=== PATIENT | female | born 1980 | race African-American/Black ===

== ENCOUNTER 2016-12-25 09:25 | Emergency (ER) | payer MEDICAID ==
[~2016-12-25] VITALS: Ht 160 cm; Wt 81.6 kg
[~2016-12-25 09:25] MED LIST: IBUPROFEN600 MG ORAL; IBUPROFEN800 MG ORAL; NKM; PEPCID20 MG PO; SALINE NASAL SP45 ML NS; TAMIFLU75 MG ORAL; TESSALON PERLE100 M2 ORAL
[2016-12-25 09:40] VITALS: BP 113/75
[2016-12-25] MEDS ORDERED: AZITHROMYCIN250 MG ORAL (10:32)
[2016-12-25] MEDS ORDERED: PYRIDOXINE HCL25 MG PO (10:32)
[2016-12-25 10:48] VITALS: BP 120/70
--- NOTE | 2016-12-29 13:51 | Emergency Room Report ---
History of Present Illness General Chief Complaint: General Complaint Source: Patient Present Illness HPI 36-year-old female presents to ED for evaluation. Patient states the last 2 days she has had a cough. productive. Blood-tinged sputum. Patient notes bodyaches and chills. Patient states she is 5 weeks . Denies any abdominal pain. Denies any sore throat or earache. Denies any dysuria or hematuria. No other aggravating relieving factors. Denies any other associated symptoms Allergies: Coded Allergies: METOCLOPRAMIDE (Verified Allergy, Unknown, 10/18/14) PROMETHAZINE (Verified Allergy, Unknown, 10/18/14) Patient History Past Medical History: none Past Surgical History: none Pertinent Family History: none Social History: Denies: alcohol use, drug use, smoking Last Menstrual Period: 11/18/2016 Now: Yes : 6 Para: 3 Immunizations: UTD Reviewed Nursing Documentation: PMH: Agreed, PSxH: Agreed Nursing Documentation-PMH Past Medical History: No Stated History Hx Cardiac Problems: No Hx Hypertension: No Hx Pacemaker: No Hx Asthma: No Hx COPD: No Hx Diabetes: No Hx Cancer: No Hx Gastrointestinal Problems: Yes - GERD Hx Dialysis: No Hx Cerebrovascular Accident: No Hx Seizures: No Review of Systems All Other Systems: negative except mentioned in HPI Physical Exam Vital Signs Date Time Temp Pulse Resp B/P Pulse Ox O2 Delivery O2 Flow Rate FiO2 12/25/16 09:40 99.1 86 16 113/75 98 Room Air Sp02 EP Interpretation: reviewed, normal General Appearance: no apparent distress, alert, GCS 15, non-toxic Head: normocephalic, atraumatic Eyes: bilateral eye PERRL, bilateral eye normal inspection ENT: hearing grossly normal, normal pharynx, no angioedema, normal voice Neck: full range of motion, supple/symm/no masses Respiratory: chest non-tender, lungs clear, normal breath sounds, speaking full sentences Cardiovascular #1: regular rate, rhythm, no edema Cardiovascular #2: 2+ carotid (R), 2+ carotid (L), 2+ radial (R), 2+ radial (L) , 2+ dorsalis pedis (R), 2+ dorsalis pedis (L) Gastrointestinal: normal bowel sounds, non tender, soft, non-distended, no guarding, no rebound Rectal: deferred Genitourinary: normal inspection, no CVA tenderness Musculoskeletal: back normal, gait/station normal, normal range of motion, non- tender Neurologic: alert, oriented x3, responsive, motor strength/tone normal, sensory intact, speech normal Psychiatric: judgement/insight normal, memory normal, mood/affect normal, no suicidal/homicidal ideation Reflexes: 3+ bicep (R), 3+ bicep (L), 3+ tricep (R), 3+ tricep (L), 3+ knee (R) , 3+ knee (L) Skin: normal color, no rash, warm/dry, well hydrated Lymphatic: no adenopathy Medical Decision Making Diagnostic Impression: Primary Impression: Atypical pneumonia ER Course Hospital Course 36-year-old female presents ED complaining of cough and chills. 5 weeks Differential diagnoses include: URI, pharyngitis, otitis media, asthma Clinical course Patient placed on stretcher. After initial history, physical exam reveals a female in no acute distress. Bilateral TM unremarkable. No pharyngeal erythema. No tonsillar exudates. No lymphadenopathy. lungs clear. abdomen soft. Clinical findings consistent with atypical pneumonia. We will discharge with Z- Kayden which is safe in Diagnosis - atypical pneumonia Stable and discharged home with Rx Zpack. Instructed to followup with PMD. Return to ED if symptoms recur or worsen Last Vital Signs Date Time Temp Pulse Resp B/P Pulse Ox O2 Delivery O2 Flow Rate FiO2 12/25/16 10:48 78 16 120/70 98 Room Air 12/25/16 09:40 99.1 Status: improved Disposition: HOME, SELF-CARE Condition: Stable Scripts Azithromycin* (ZITHROMAX*) 250 Mg Tablet 250 MG ORAL DAILY, #6 TAB 0 Refills Take two tablets by mouth today, then take one tablet by mouth daily for four days Prov: BAILEY WILEY M.D. 12/25/16 Pyridoxine Hcl (PYRIDOXINE HCL) 25 Mg Tablet 25 MG PO Q8HR for Nausea & Vomiting, #30 TAB Prov: BAILEY WILEY M.D. 12/25/16 Patient Instructions: Community-Acquired Pneumonia, Adult, [id number] BAILEY WILEY M.D. Dec 29, 2016 13:51
== END 2016-12-25 10:50 | disposition home or self-care (01) ==
LOC: EMR 09:59
DX: O99.511 Diseases of the respiratory system complicating pregnancy, first trimester (principal); J18.9 Pneumonia, unspecified organism; K21.9 Gastro-esophageal reflux disease without esophagitis; Z88.8 Allergy status to other drugs, medicaments and biological substances; Z3A.01 Less than 8 weeks gestation of pregnancy
CPT/HCPCS: 99284

== ENCOUNTER 2018-06-19 08:15 | Emergency (ER) | payer MEDICAID ==
[~2018-06-19] VITALS: Ht 162.6 cm; Wt 77.1 kg
[~2018-06-19 08:15] MED LIST changes: +AZITHROMYCIN250 MG ORAL; +PYRIDOXINE HCL25 MG PO
--- NOTE | 2018-06-19 08:35 | Emergency Room Report ---
History of Present Illness General Chief Complaint: Upper Respiratory Illness Source: Patient, Medical Record Present Illness HPI Patient is a 37-year-old female who presented after increased cough and congestion. Patient had onset of symptoms approximate 3 days prior to arrival. Patient reports having nonproductive cough. She denies any prior history of asthma. Patient states that she smokes marijuana regularly. She reports a mild sore throat. She denies any vomiting or diarrhea. Allergies: Coded Allergies: CLINDAMYCIN (Verified Allergy, Unknown, 06/19/18) METOCLOPRAMIDE (Verified Allergy, Unknown, 10/18/14) PROMETHAZINE (Verified Allergy, Unknown, 10/18/14) Patient History Past Medical History: see triage record Last Menstrual Period: 06/13/18 Reviewed Nursing Documentation: PMH: Agreed; PSxH: Agreed Nursing Documentation-PMH Past Medical History: No History, Except For Hx Cardiac Problems: No Hx Hypertension: No Hx Pacemaker: No Hx Asthma: No Hx COPD: No Hx Diabetes: No Hx Cancer: No Hx Gastrointestinal Problems: Yes - GERD Hx Dialysis: No Hx Cerebrovascular Accident: No Hx Seizures: No Review of Systems All Other Systems: negative except mentioned in HPI Physical Exam Vital Signs Date Time Temp Pulse Resp B/P (MAP) Pulse Ox O2 Delivery O2 Flow Rate FiO2 06/19/18 08:18 99.3 78 18 105/70 96 Room Air 99.3 General Appearance: well appearing, no apparent distress, alert, GCS 15, non- toxic Head: normocephalic, atraumatic ENT: hearing grossly normal, normal voice Neck: full range of motion, supple Respiratory: no respiratory distress, speaking full sentences, wheezing Cardiovascular #1: normal inspection, normal peripheral pulses, regular rate, rhythm, no edema Gastrointestinal: normal inspection, non tender, soft Musculoskeletal: normal inspection, no calf tenderness Neurologic: normal inspection, alert, oriented x3, normal gait Psychiatric: mood/affect normal Skin: no rash Medical Decision Making Diagnostic Impression: Primary Impression: Bronchitis ER Course patient presented for cough.Differential diagnosis included but was not limited to bronchitis, pneumonia, pulmonary embolism, pericarditis, asthma, foreign body.The chest x-ray was ordered due to patient's symptoms.Chest x-ray one view read by radiology showed no pleural effusions or infiltrates. No acute cardio pulmonary disease. Patient does not have any risk factors for pulmonary embolism. The patient shows no evidence of productive cough or severe shortness of breath.The patient given breathing treatments improvement in her symptoms. Patient shows no risk factors for pulmonary embolism. Patient was advised smoking cessation.The patient is advised to follow up with primary care doctor in 2 days. Patient is advised to return if any worsening condition or if any changes in status that are concerning. This report is dictated with [employer] straw hat washer operator software which may occasionally lead to discrepancies related to use of this software. Last Vital Signs Date Time Temp Pulse Resp B/P (MAP) Pulse Ox O2 Delivery O2 Flow Rate FiO2 06/19/18 08:18 99.3 78 18 105/70 96 Room Air 99.3 Status: improved Disposition: HOME, SELF-CARE Condition: Stable Scripts Prednisone* (PREDNISONE*) 20 Mg Tablet 60 MG ORAL DAILY, #15 TAB Prov: Augustin Real MD 06/19/18 Albuterol Sulfate* (ALBUTEROL SULFATE MDI*) 8.5 Gm Hfa.aer.ad 2 PUFF INH Q6H, #1 EA 0 Refills Prov: Augustin Real MD 06/19/18 Augustin Real MD Jun 19, 2018 08:35
[2018-06-19] MEDS ORDERED: Albuterol/Ipratropium 3ml neb HHN ONE (08:45)
[2018-06-19] MEDS ORDERED: ALBUTEROL SULF8.5 GM INH (09:42)
[2018-06-19] MEDS ORDERED: PREDNISONE20 MG ORAL (09:42)
--- NOTE | 2018-06-19 09:43 | Diagnostic Imaging Report ---
INDICATION: Shortness of breath COMPARISON: Chest x-ray dated 10/18/14 FINDINGS: Single frontal view demonstrates a normal cardiomediastinal silhouette. The lungs are clear. No pleural effusions. The visualized osseous structures are within normal limits. IMPRESSION: No acute cardiopulmonary disease.
[2018-06-19 10:15] VITALS: BP 112/77
[2018-06-19 10:49] VITALS: BP 112/77
== END 2018-06-19 10:58 | disposition home or self-care (01) ==
LOC: EMR 08:30
DX: J40 Bronchitis, not specified as acute or chronic (principal)
CPT/HCPCS: 71045; 81025; 94640; 99284; J7512; J7620

== ENCOUNTER 2018-08-18 14:41 | Emergency (ER) | payer MEDICAID ==
[~2018-08-18] VITALS: Ht 162.6 cm; Wt 81.6 kg
[~2018-08-18 14:41] MED LIST changes: +ALBUTEROL SULF8.5 GM INH; +PREDNISONE20 MG ORAL
--- NOTE | 2018-08-18 15:14 | Emergency Room Report ---
History of Present Illness General Chief Complaint: Dizziness Source: Patient Present Illness HPI 37-year-old female patient presents ER complaining of intermittent dizziness for the past 5 days. Contrary triage report is not constant. Reports worse with change in position. Denies headache. Denies fever, chest pain, shortness of breath. Denies vision changes. Reports tinnitus heard yesterday. denies abdominal pain. Reports history of anxiety, states he is to takes Xanax, states she stopped taking medication "years ago" because she didn't want to "become addicted". Denies thoughts of hurting herself or others. Denies syncope. Denies ear pain. Denies vision changes. Reports "feels like im moving on a boat". Allergies: Coded Allergies: CLINDAMYCIN (Verified Allergy, Unknown, 06/19/18) METOCLOPRAMIDE (Verified Allergy, Unknown, 10/18/14) PROMETHAZINE (Verified Allergy, Unknown, 10/18/14) Patient History Past Medical History: see triage record Last Menstrual Period: 08/02/18 Reviewed Nursing Documentation: PMH: Agreed; PSxH: Agreed Nursing Documentation-PMH Past Medical History: No Stated History Hx Cardiac Problems: No Hx Hypertension: No Hx Pacemaker: No Hx Asthma: No Hx COPD: No Hx Diabetes: No Hx Cancer: No Hx Gastrointestinal Problems: Yes - GERD Hx Dialysis: No Hx Cerebrovascular Accident: No Hx Seizures: No Review of Systems All Other Systems: negative except mentioned in HPI Physical Exam Vital Signs Date Time Temp Pulse Resp B/P (MAP) Pulse Ox O2 Delivery O2 Flow Rate FiO2 08/18/18 14:47 98.2 79 18 106/67 98 Room Air Sp02 EP Interpretation: reviewed, normal General Appearance: well appearing, no apparent distress, alert, GCS 15, non- toxic Head: normocephalic, atraumatic Eyes: bilateral eye normal inspection, bilateral eye PERRL ENT: hearing grossly normal, normal pharynx, no angioedema, normal voice, TMs + canals normal, uvula midline, moist mucus membranes Neck: full range of motion, no bony tend Respiratory: lungs clear, normal breath sounds, no rhonchi, no respiratory distress, no accessory muscle use, no wheezing, speaking full sentences Cardiovascular #1: regular rate, rhythm, no edema Gastrointestinal: non tender, soft, no mass, non-distended, no guarding, no rebound Genitourinary: no CVA tenderness Musculoskeletal: back normal, digits/nails normal, gait/station normal, normal range of motion, non-tender Neurologic: alert, oriented x3, responsive, cotton wringer III-XII nml as tested, motor strength/tone normal, sensory intact, cerebellar normal, normal gait, speech normal Psychiatric: mood/affect normal Skin: no rash Lymphatic: no adenopathy Medical Decision Making PA Attestation Dr. Waller is my supervising Physician whom patient management has been discussed with. Diagnostic Impression: Primary Impression: Dizziness ER Course Pt. presents to the ED c/o dizziness. Ddx considered but are not limited to orthostatic dizziness, Mnire's, BPPV, anemia,anxiety. cranial nerves intact as tested, no focal neuro deficits, low suspicion for central vertigo, does not require CT head at this time. Patient ambulatory independently in the ER without difficulty. Vital signs: are WNL, pt. is afebrile ER COURSE: Provided with meclizine. no improvement in symptoms with Mitch-Hallpike maneuver. orthostatic vital show 15 bpm increasing heart rate from sitting to standing, possible orthostatic dizziness, patient with fluids. CBC and CMP unremarkable, no signs of anemia or electrolyte abnormality. UA negative, no signs of infection Urine negative results discussed with patient. patient reports symptoms improved while in ER. advised patient to follow-up with primary care provider discuss further evaluation and management of dizziness symptoms. Discuss referral to neuro specialist as needed. ER precautions given. follow up with mental health professional to discuss anxiety symptoms. DISCHARGE: Rx provided for Meclizine At this time pt is stable for d/c to home. Patient is resting comfortably, in no acute distress, nontoxic appearing, talking without difficulty. Patient to take medications as instructed Will provide with patient care instructions and any necessary prescriptions. Care plan and follow-up instructions provided. Patient instructed to follow-up with primary care provider in 3 - 5 days. Patient questions asked and answered. Patient reports understanding and agreement to treatment plan. ER precautions given. Patient instructed to return to ER immediately for any new or worsening of symptoms including but not limited to increasing SOB, persistent fever, chest pain, intractable vomiting. - Please note that this Emergency Department Report was dictated using [email or web address] tomography technician technology software, occasionally this can lead to erroneous entry secondary to interpretation by the dictation equipment. Labs Test 08/18/18 15:45 White Blood Count 10.1 K/UL (4.8-10.8) Red Blood Count 4.47 M/UL (4.20-5.40) Hemoglobin 13.7 G/DL (12.0-16.0) Hematocrit 39.4 % (37.0-47.0) Mean Corpuscular Volume 88 FL (80-99) Mean Corpuscular Hemoglobin 30.6 PG (27.0-31.0) Mean Corpuscular Hemoglobin Concent 34.7 G/DL (32.0-36.0) Red Cell Distribution Width 11.5 % (11.6-14.8) Platelet Count 231 K/UL (150-450) Mean Platelet Volume 6.7 FL (6.5-10.1) Neutrophils (%) (Auto) 61.4 % (45.0-75.0) Lymphocytes (%) (Auto) 29.3 % (20.0-45.0) Monocytes (%) (Auto) 6.9 % (1.0-10.0) Eosinophils (%) (Auto) 1.2 % (0.0-3.0) Basophils (%) (Auto) 1.2 % (0.0-2.0) Urine Color Pale yellow Urine Appearance Clear Urine pH 8 (4.5-8.0) Urine Specific [place] 1.010 (1.005-1.035) Urine Protein Negative (NEGATIVE) Urine Glucose (UA) Negative (NEGATIVE) Urine Ketones Negative (NEGATIVE) Urine Blood 3+ (NEGATIVE) Urine Nitrite Negative (NEGATIVE) Urine Bilirubin Negative (NEGATIVE) Urine Urobilinogen Normal MG/DL (0.0-1.0) Urine Leukocyte Esterase Negative (NEGATIVE) Urine RBC 5-10 /HPF (0 - 2) Urine WBC 0 /HPF (0 - 2) Urine Squamous Epithelial Cells Occasional /LPF Urine Bacteria None /HPF (NONE) Urine HCG, Qualitative Negative (NEGATIVE) Sodium Level 138 MMOL/L (136-145) Potassium Level 3.7 MMOL/L (3.5-5.1) Chloride Level 105 MMOL/L (98-107) Carbon Dioxide Level 22 MMOL/L (21-32) Anion Gap 11 mmol/L (5-15) Blood Urea Nitrogen 10 mg/dL (7-18) Creatinine 1.2 MG/DL (0.55-1.30) Estimat Glomerular Filtration Rate > 60 mL/min (>60) Glucose Level 88 MG/DL (74-106) Calcium Level 9.3 MG/DL (8.5-10.1) Total Bilirubin 0.4 MG/DL (0.2-1.0) Aspartate Amino Transf (AST/SGOT) 29 U/L (15-37) Alanine Aminotransferase (ALT/SGPT) 40 U/L (12-78) Alkaline Phosphatase 63 U/L (46-116) Total Protein 8.1 G/DL (6.4-8.2) Albumin 3.9 G/DL (3.4-5.0) Globulin 4.2 g/dL Albumin/Globulin Ratio 0.9 (1.0-2.7) Lipase 101 U/L (73-393) Last Vital Signs Date Time Temp Pulse Resp B/P (MAP) Pulse Ox O2 Delivery O2 Flow Rate FiO2 08/18/18 14:47 98.2 79 18 106/67 98 Room Air Status: improved Disposition: HOME, SELF-CARE Condition: Stable Scripts Meclizine Hcl* (VERTICALM*) 25 Mg Tablet 25 MG ORAL THREE TIMES A DAY, #20 TAB Prov: Demetri Carlson 08/18/18 Patient Instructions: Dizziness, Vertigo Additional Instructions: Followup with primary care provider in 3 -5 days. Discuss further treatment and referral for dizziness symptoms. Followup with mental health urgent care for anxiety symptoms. Take medications as directed. Patient questions asked and answered. ER precautions given, patient instructed to return to ER immediately for any new or worsening of symptoms. Demetri Carlson Aug 18, 2018 15:14
[2018-08-18] MEDS ORDERED: Meclizine 25mg tab ORAL ONE (15:30)
[2018-08-18 16:11] LABS: APPEARANCE,URINE CLEAR; BASOPHILS % (AUTO) 1.2 % (0.0-2.0); BILIRUBIN, URINE NEGATIVE (NEGATIVE); COLOR,URINE PALE YELLOW; EOSINOPHILS % (AUTO) 1.2 % (0.0-3.0); GLUCOSE, URINE (UA) NEGATIVE (NEGATIVE); HEMATOCRIT 39.4 % (37.0-47.0); HEMOGLOBIN 13.7 G/DL (12.0-16.0); KETONES,URINE NEGATIVE (NEGATIVE); LEUKOCYTE ESTERASE ,URINE NEGATIVE (NEGATIVE); LYMPHOCYTES % (AUTO) 29.3 % (20.0-45.0); MEAN CORPUSCULAR VOLUME 88 FL (80-99); MONOCYTES % (AUTO) 6.9 % (1.0-10.0); NEUTROPHILS % (AUTO) 61.4 % (45.0-75.0); NITRITE,URINE NEGATIVE (NEGATIVE); PH,URINE 8 (4.5-8.0); PLATELET COUNT 231 K/UL (150-450); PROTEIN,URINE NEGATIVE (NEGATIVE); RED BLOOD COUNT 4.47 M/UL (4.20-5.40); RED CELL DISTRIBUTION WIDTH 11.5 % (11.6-14.8); UROBILINOGEN,URINE NORMAL MG/DL (0.0-1.0); WHITE BLOOD COUNT 10.1 K/UL (4.8-10.8)
[2018-08-18 16:18] LABS: ANION GAP 11 mmol/L (5-15); BLOOD UREA NITROGEN 10 mg/dL (7-18); CALCIUM 9.3 MG/DL (8.5-10.1); CARBON DIOXIDE 22 MMOL/L (21-32); CHLORIDE 105 MMOL/L (98-107); CREATININE 1.2 MG/DL (0.55-1.30); POTASSIUM 3.7 MMOL/L (3.5-5.1); SODIUM 138 MMOL/L (136-145)
[2018-08-18 16:23] LABS: ALANINE AMINOTRANSFERASE 40 U/L (12-78); ALBUMIN 3.9 G/DL (3.4-5.0); ALBUMIN/GLOBULIN RATIO 0.9 (1.0-2.7); ALKALINE PHOSPHATASE 63 U/L (46-116); ASPARTATE AMINO TRANSFERASE 29 U/L (15-37); BILIRUBIN,TOTAL 0.4 MG/DL (0.2-1.0)
[2018-08-18] MEDS ORDERED: VERTICALM25 MG ORAL (17:07)
[2018-08-19 00:30] VITALS: BP 122/79
== END 2018-08-19 00:31 | disposition home or self-care (01) ==
LOC: EMR 15:36
DX: R42 Dizziness and giddiness (principal); Z88.8 Allergy status to other drugs, medicaments and biological substances
CPT/HCPCS: 36415; 80053; 81003; 81025; 83690; 85025; 96360; 99284